=== PATIENT | female | born 2000 | race Caucasian/White ===

== ENCOUNTER 2018-06-17 14:28 | Outpatient (CLI) | payer BC ==
--- NOTE | 2018-06-17 15:36 | RAD ---
SINGLE VIEW OF THE THORACIC AND LUMBOSACRAL SPINE: COMPARISON: None. HISTORY: Scoliosis. FINDINGS: Anterior views of the thoracic and lumbosacral spines were performed. There is scoliotic curvature s urrounding the L1 vertebral body. Maximum sanabria angle is approximately 13 degrees. No degenerative c hanges or vertebral anomalies are seen. IMPRESSION: Mild scoliosis. POS: TPC
== END 2018-06-17 14:29 | disposition home or self-care (01) ==
LOC: BICRAD 14:28
PROVIDERS: ATTEND Family Medicine
DX: M41.9 Scoliosis, unspecified (principal)
CPT/HCPCS: 72081

== ENCOUNTER 2019-04-06 11:06 | Outpatient (CLI) | payer BC ==
--- NOTE | 2019-04-06 11:56 | ULT ---
RIGHT UPPER QUADRANT ULTRASOUND: Date: 04/06/2019 HISTORY: Right upper quadrant pain. FINDINGS: The liver, gallbladder, right kidney, and visualized portions of the pancreas appear normal. The comm on duct measures 2.0 mm in diameter. No free fluid is seen in Morison's pouch. IMPRESSION: Normal exam. POS: OFF
== END 2019-04-06 11:07 | disposition home or self-care (01) ==
LOC: SCSULT 11:06
PROVIDERS: ATTEND Family Medicine
DX: R10.84 Generalized abdominal pain (principal)
CPT/HCPCS: 76705